=== PATIENT | female | born 1950 | race Caucasian/White ===

== ENCOUNTER 2017-09-24 09:44 | Emergency (ER) | payer BC, OTHER ==
[~2017-09-24] VITALS: Ht 165.1 cm; Wt 68.2 kg
[2017-09-24 09:46] VITALS: BP 155/104
[2017-09-24] MEDS ORDERED: OXYcodone/APAP 5/325MG TABLET PO ONE (11:30)
[2017-09-24] MEDS ORDERED: KETOROLAC 30 MG/1 ML IM ONE (11:30)
[2017-09-24] MEDS ORDERED: KETOROLAC 30 MG/1 ML ONE (11:36)
[2017-09-24] MEDS ORDERED: OXYcodone/APAP 5/325MG TABLET ONE (11:37)
== END 2017-09-24 12:51 | disposition home or self-care (01) ==
LOC: ED 12:40
DX: S22.42XA Multiple fractures of ribs, left side, initial encounter for closed fracture (principal); W01.0XXA Fall on same level from slipping, tripping and stumbling without subsequent striking against object, initial encounter; Y93.89 Activity, other specified; Y92.89 Other specified places as the place of occurrence of the external cause; Y99.8 Other external cause status
CPT/HCPCS: 71101; 96372; 99284; J1885

== ENCOUNTER 2019-08-21 06:25 | Inpatient (IN) | payer BC, MEDICARE ==
[~2019-08-21] VITALS: Ht 167.6 cm; Wt 65.9 kg
[~2019-08-21 06:25] MED LIST: AMLO10TA8 PO; B CO1TAB37 PO; CYCL-259 PO; FOLI-17 PO; LISI-170 PO; LOSA100T14 PO; MAGN400T9 PO; METH10TA2 PO; METO-264 PO; PANT40GR PO; PRAZ2CAP2 PO; THIA100T67 PO; [UNRECOGNIZED DRUG - OTHER]; benzonatate PO; clonidine; lisinopril PO; losartan PO; methadone; metoprolol; venlafaxine; zolpidem
[2019-08-21] MEDS ORDERED: MORPHINE SULFATE 4 MG/ML, 1ML IVPush ONE ×2 (06:30→11:30)
[2019-08-21] MEDS ORDERED: SODIUM CHLORIDE FLUSH 10ML SYR IVF ONE (06:30)
[2019-08-21] MEDS ORDERED: METOCLOPRAMIDE 5 MG/ML, 2ML IVPush ONE (06:30)
[2019-08-21] MEDS ORDERED: MORPHINE SULFATE 4 MG/ML, 1ML ONE ×2 (06:57→11:19)
[2019-08-21] MEDS ORDERED: METOCLOPRAMIDE 5 MG/ML, 2ML ONE (06:57)
--- NOTE | 2019-08-21 07:03 | NUR ---
PT STRAIGHT CATH'ED FOR URINE. PT TOLERATE PROCEDURE WELL. URINE WALKED TO LAB.
--- NOTE | 2019-08-21 07:04 | NUR ---
RECEIVED REPORT FROM ITALO SALINAS RN. PT RESTING ON [facility]. VSS. MEDICATED PER NOV.
--- NOTE | 2019-08-21 07:04 | NUR ---
REPORT TO RYLIE PEÑA
[2019-08-21 07:05] LABS: BASOPHILS # (AUTO) 0.02 x10^3/uL (0-0.1); BASOPHILS % (AUTO) 0 % (0-1); EOSINOPHILS # (AUTO) 0.09 x10^3/uL (0-0.4); EOSINOPHILS % (AUTO) 1 % (1-7); LYMPHOCYTES # (AUTO) 1.62 x10^3/uL (1-3.4); LYMPHOCYTES % (AUTO) 17 % (22-44); MD NO; MEAN CORPUSCULAR HEMOGLOBIN 34.9 pg (27.0-34.8); MEAN CORPUSCULAR HGB CONC 34.9 g/dL (32.4-35.8); MEAN CORPUSCULAR VOLUME 100.1 fL (80-100); MEAN PLATELET VOLUME 6.5 fL (7.4-10.4); MONOCYTES # (AUTO) 0.76 x10^3/uL (0.2-0.8); MONOCYTES % (AUTO) 8 % (2-9); NEUTROPHILS # (AUTO) 7.13 x10^3/uL (1.8-6.8); NEUTROPHILS % (AUTO) 74 % (42-75); PLATELET COUNT 321 x10^3/uL (130-400); RED BLOOD COUNT 3.99 x10^6/uL (3.82-5.3)
[2019-08-21 07:08] LABS: ALANINE AMINOTRANSFERASE 36 U/L (12-78); ALBUMIN 4.3 g/dL (3.4-5.0); CALCIUM 9.3 mg/dL (8.5-10.1); CREATININE 1.02 mg/dL (0.55-1.02)
[2019-08-21 07:10] LABS: ALKALINE PHOSPHATASE 70 U/L (45-117); BILIRUBIN,TOTAL 1.1 mg/dL (0.2-1.0); TOTAL PROTEIN 7.4 g/dL (6.4-8.2)
[2019-08-21 07:20] LABS: ANION GAP 11 mmol/L (5-15); CHLORIDE 88 mmol/L (98-107)
[2019-08-21 07:24] LABS: MICROSCOPIC INDICATED
[2019-08-21 07:25] LABS: CULTURE INDICATED? YES
[2019-08-21] MEDS ORDERED: LOSARTAN PO (08:13)
[2019-08-21] MEDS ORDERED: CEFTRIAXONE PMX 1GM/50ML 50 ML IV ONE (08:30)
[2019-08-21] MEDS ORDERED: CEFTRIAXONE PMX 1GM/50ML 50 ML ONE (08:46)
--- NOTE | 2019-08-21 08:53 | NUR ---
PT RESTING ON [facility]. VSS. AWARE OF POC FOR ADMIT.
--- NOTE | 2019-08-21 08:54 | NUR ---
PER ERP DR. EPSTEIN NO NEED FOR BLOOD CULTURES PRIOR TO START OF IV ABX.
[2019-08-21] MEDS ORDERED: SODIUM CHLORIDE 0.9% 1,000 ML IV ONE (09:00)
--- NOTE | 2019-08-21 09:37 | NUR ---
HOSPITAL BED ORDERED FOR PT.
[2019-08-21] MEDS ORDERED: OMNIPAQUE 350 MG/ML, 100ML BOTTLE ONE (09:53)
--- NOTE | 2019-08-21 10:02 | NUR ---
PT RESTING ON GURNEY. NADN. TROY.
--- NOTE | 2019-08-21 10:32 | NUR ---
REPORT GIVEN TO REMA MANZO RN. ALL QUESTIONS ANSWERED. AWAITING PT TRANSPORT.
[2019-08-21 11:51] VITALS: BP 119/78
[2019-08-21] MEDS ORDERED: BACLOFEN 10 MG TABLET PO PRN (14:00)
[2019-08-21] MEDS ORDERED: ONDANSETRON ODT 4 MG PO PRN (14:00)
[2019-08-21] MEDS ORDERED: ACETAMINOPHEN 325 MG TABLET PO PRN (14:00)
[2019-08-21] MEDS: POTASSIUM CHLORIDE 20 MEQ in LACTATED RINGERS 1,000 ML IV SCH (14:32)
[2019-08-21] MEDS: SODIUM BICARBONATE 650 MG TABLET PO SCH ×2 (16:56→21:27)
[2019-08-21] MEDS: HYDROcodone/APAP 5/325 TABLET PO PRN (16:58)
[2019-08-21 19:47] VITALS: BP 112/68
[2019-08-21] MEDS: ENOXAPARIN 40 MG/0.4 ML SQ SCH (21:00)
[2019-08-21] MEDS: ZOLPIDEM 5MG TABLET PO PRN (21:26)
[2019-08-21] MEDS: PRAZOSIN 2 MG CAPSULE PO SCH (21:26)
[2019-08-22 02:10] VITALS: BP 97/61
[2019-08-22] MEDS: POTASSIUM CHLORIDE 20 MEQ in LACTATED RINGERS 1,000 ML IV SCH ×2 (03:23→16:49)
[2019-08-22] MEDS: PANTOPROZOLE 40MG TABLET PO SCH (06:04)
[2019-08-22] MEDS: HYDROcodone/APAP 5/325 TABLET PO PRN ×2 (06:04→13:35)
[2019-08-22 06:07] LABS: MEAN CORPUSCULAR HEMOGLOBIN 34.6 pg (27.0-34.8); MEAN PLATELET VOLUME 6.4 fL (7.4-10.4); PLATELET COUNT 266 x10^3/uL (130-400); RED BLOOD COUNT 3.56 x10^6/uL (3.82-5.3); RED CELL DISTRIBUTION WIDTH 13.1 % (9.6-15.2)
[2019-08-22 06:13] LABS: ALBUMIN 3.4 g/dL (3.4-5.0); ANION GAP 7 mmol/L (5-15); CALCIUM 8.7 mg/dL (8.5-10.1); CHLORIDE 96 mmol/L (98-107)
[2019-08-22 06:17] LABS: ALANINE AMINOTRANSFERASE 36 U/L (12-78); ALKALINE PHOSPHATASE 63 U/L (45-117); BILIRUBIN,TOTAL 0.9 mg/dL (0.2-1.0); CREATININE 0.93 mg/dL (0.55-1.02); TOTAL PROTEIN 6.4 g/dL (6.4-8.2)
[2019-08-22 06:59] LABS: MD SCAN
[2019-08-22 07:00] LABS: BASOPHILS # (AUTO) 0.03 x10^3/uL (0-0.1); BASOPHILS % (AUTO) 1 % (0-1); EOSINOPHILS # (AUTO) 0.25 x10^3/uL (0-0.4); EOSINOPHILS % (AUTO) 5 % (1-7); LYMPHOCYTES # (AUTO) 2.14 x10^3/uL (1-3.4); LYMPHOCYTES % (AUTO) 40 % (22-44); MONOCYTES # (AUTO) 0.62 x10^3/uL (0.2-0.8); MONOCYTES % (AUTO) 11 % (2-9); NEUTROPHILS # (AUTO) 2.38 x10^3/uL (1.8-6.8); NEUTROPHILS % (AUTO) 44 % (42-75)
[2019-08-22 09:27] VITALS: BP 135/87
[2019-08-22] MEDS: CEFTRIAXONE PMX 2GM/50ML 50 ML IV SCH (09:29)
[2019-08-22] MEDS: THIAMINE 100MG TABLET PO SCH (09:29)
[2019-08-22] MEDS: METOPROLOL SUCCINATE 50 MG TAB.ER.24H PO SCH (09:30)
[2019-08-22] MEDS: SODIUM BICARBONATE 650 MG TABLET PO SCH ×2 (09:30→21:18)
[2019-08-22 15:53] VITALS: BP 125/74
[2019-08-22 19:27] VITALS: BP 140/87
[2019-08-22] MEDS: ENOXAPARIN 40 MG/0.4 ML SQ SCH (21:00)
[2019-08-22] MEDS: ZOLPIDEM 5MG TABLET PO PRN (21:18)
[2019-08-22] MEDS: PRAZOSIN 2 MG CAPSULE PO SCH (21:18)
[2019-08-23 01:11] VITALS: BP 145/80
[2019-08-23] MEDS: HYDROcodone/APAP 5/325 TABLET PO PRN ×2 (01:31→09:07)
[2019-08-23] MEDS ORDERED: SODIUM CHLORIDE 0.9% 1,000 ML IV SCH (02:00)
[2019-08-23] MEDS: PANTOPROZOLE 40MG TABLET PO SCH (06:28)
[2019-08-23 07:18] VITALS: BP_SYST 163; BP_SYST 169; BP_DIAS 83; BP_DIAS 93
[2019-08-23] MEDS: THIAMINE 100MG TABLET PO SCH (09:05)
[2019-08-23] MEDS: CEFTRIAXONE PMX 2GM/50ML 50 ML IV SCH (09:05)
[2019-08-23] MEDS: SODIUM BICARBONATE 650 MG TABLET PO SCH (09:06)
[2019-08-23] MEDS: METOPROLOL SUCCINATE 50 MG TAB.ER.24H PO SCH (09:06)
[2019-08-23] MEDS ORDERED: SODI650T PO (10:09)
[2019-08-23] MEDS ORDERED: CIPR500T87 PO (10:09)
[2019-08-23 12:10] VITALS: BP 154/95
== END 2019-08-23 12:45 | disposition home or self-care (01) | DRG 690 ==
LOC: ED 07:48 → EDIP 08:17 → 3N 11:32 → DCLOUNGE 08-23 12:35
PROVIDERS: ADMIT Emergency Medicine; ATTEND Emergency Medicine
PROC: 0T9B70Z Drainage of Bladder with Drainage Device, Via Natural or Artificial Opening (ICD-10-PCS; principal; 2019-08-21)
DX: N30.90 Cystitis, unspecified without hematuria (principal); E87.1 Hypo-osmolality and hyponatremia; G93.40 Encephalopathy, unspecified; F17.200 Nicotine dependence, unspecified, uncomplicated; G89.4 Chronic pain syndrome; I10 Essential (primary) hypertension; K76.0 Fatty (change of) liver, not elsewhere classified; Z87.440 Personal history of urinary (tract) infections; Z90.711 Acquired absence of uterus with remaining cervical stump
CPT/HCPCS: 36415; 74177; 80053; 80307; 81001; 83605; 83690; 85025; 86704; 86706; 86708; 86803; 87077; 87086; 87186; 87340; G0378; J0696; J3480; Q9967; J2270; J2765; J7030; J7120

== ENCOUNTER 2020-12-05 11:51 | Emergency (ER) | payer BC, MEDICARE ==
[~2020-12-05] VITALS: Ht 162.6 cm; Wt 68.9 kg
[~2020-12-05 11:51] MED LIST changes: +AMLO-211 PO; -AMLO10TA8 PO; +CIPR500T87 PO; -CYCL-259 PO; +CYCL10TA2 PO; -FOLI-17 PO; +FOLI1TAB32 PO; +LOSARTAN PO; +SODI650T PO
--- NOTE | 2020-12-05 12:15 | NUR ---
bass guitar teacher completed and pt placed on monitor.
[2020-12-05] MEDS ORDERED: SPIR50TA4 PO (12:28)
[2020-12-05] MEDS ORDERED: GABA300C PO (12:28)
[2020-12-05] MEDS ORDERED: METO50TA82 PO (12:28)
[2020-12-05] MEDS ORDERED: OXYC20TA2 PO (12:28)
[2020-12-05] MEDS ORDERED: BUSP30TA PO (12:28)
--- NOTE | 2020-12-05 12:29 | NUR ---
at bedside for exam.
--- NOTE | 2020-12-05 12:51 | NUR ---
Pt taken to radiology at this time via billie.
[2020-12-05] MEDS ORDERED: OXYcodone IR 5MG TABLET ONE (12:53)
[2020-12-05] MEDS ORDERED: OXYcodone IR 5MG TABLET PO PRN (13:00)
[2020-12-05 13:05] VITALS: BP 136/85
--- NOTE | 2020-12-05 13:37 | NUR ---
MD at bedside for reassessment and plan of care discussion.
== END 2020-12-05 14:33 | disposition home or self-care (01) ==
LOC: ED 12:27
DX: S22.42XA Multiple fractures of ribs, left side, initial encounter for closed fracture (principal); W01.0XXA Fall on same level from slipping, tripping and stumbling without subsequent striking against object, initial encounter; Y93.89 Activity, other specified; Y92.009 Unspecified place in unspecified non-institutional (private) residence as the place of occurrence of the external cause; Y99.8 Other external cause status
CPT/HCPCS: 71250; 99284

== ENCOUNTER 2021-05-31 12:35 | Outpatient (CLI) | payer BC, MEDICARE ==
[~2021-05-31 12:35] MED LIST changes: +BUSP30TA PO; +GABA300C PO; +METO50TA82 PO; +OXYC20TA2 PO; +SPIR50TA4 PO
== END 2021-05-31 23:59 | disposition home or self-care (01) ==
LOC: STAR 12:35
PROVIDERS: ATTEND Anesthesiology
DX: Z01.818 Encounter for other preprocedural examination (principal); Z01.812 Encounter for preprocedural laboratory examination; Z01.89 Encounter for other specified special examinations; R79.1 Abnormal coagulation profile; R94.31 Abnormal electrocardiogram [ECG] [EKG]
CPT/HCPCS: 93005